=== PATIENT | female | born 1970 | race Caucasian/White ===

== ENCOUNTER 2016-05-26 00:21 | Emergency (ER) | payer OTHER | END 2016-05-26 03:02 | disposition home health service (06) | LOC: ER 00:21 | DX: M79.605 Pain in left leg (principal); R22.42 Localized swelling, mass and lump, left lower limb; K21.9 Gastro-esophageal reflux disease without esophagitis; I10 Essential (primary) hypertension; E11.9 Type 2 diabetes mellitus without complications; Z90.710 Acquired absence of both cervix and uterus; Z79.899 Other long term (current) drug therapy ==